=== PATIENT | female | born 1975 | race African-American/Black ===

== ENCOUNTER → 2020-12-06 | Outpatient (CLI) | payer OTHER ==
[~2020-12-06] MED LIST: DOXYCYCLINE 10100 MG PO; DRAMAMINE50 MG PO; IRON325 PO; MECLIZINE HCL25 M1 PO; MEDROLDOSEPACK PO; NOHOMEMEDICATIONS; NOVOLOG100 UNIT/1 SQ; PERCOCET 5-3251 EACH PO; PREDNISONE 10 M10 M1 PO; PROAIR HFA8.5 GM INH; SOLU-MEDROL500 MG IV; VITAMIN B-12100 MCG PO
== END ==
LOC: RAD 12:23
PROVIDERS: ATTEND Internal Medicine
DX: M79.672 Pain in left foot (principal)